=== PATIENT | female | born 1970 | race African-American/Black ===

== ENCOUNTER → 2024-02-06 | Emergency (ER) | payer MEDICAID ==
[~2024-02-06] VITALS: Ht 162.6 cm; Wt 72.6 kg
[~2024-02-06] MED LIST: ALBU18HF2 INH; ALBUTEROL FS 2.5 MG/3 ML VIAL.NEB ONE; ATOR40TA PO; BUDE10.2 INH; BUPR-96 PO; BUSP10TA35 PO; ESCI20TA PO; IPRATROPIUM NEB FS 0.5 MG/2.5 ML AMPUL.NEB ONE; LISI10TA29 PO; METF-881 PO; PANT40TA2 PO; PRED50TA PO; TIOT18CA3 INH; predniSONE 20 MG TABLET ONE
[2024-02-06] MEDS: IPRATROPIUM NEB FS 0.5 MG/2.5 ML AMPUL.NEB NEB ONE (20:15)
[2024-02-06] MEDS: ALBUTEROL FS 2.5 MG/3 ML VIAL.NEB NEB ONE (20:15)
[2024-02-06 20:16] VITALS: O2SAT 100
[2024-02-06] MEDS: predniSONE 20 MG TABLET PO ONE (20:31)
[2024-02-06 21:25] VITALS: O2SAT 100
[2024-02-06 22:53] VITALS: BP 121/81; TEMP 98; O2SAT 100
== END | disposition home or self-care (01) ==
LOC: ER 19:50
DX: J45.901 Unspecified asthma with (acute) exacerbation (principal); I10 Essential (primary) hypertension; E11.9 Type 2 diabetes mellitus without complications; F32.A Depression, unspecified; F41.9 Anxiety disorder, unspecified
CPT/HCPCS: 99285; 71045; 93005; 94644; J7512

== ENCOUNTER 2024-06-07 18:25 | Emergency (ER) | payer MEDICAID ==
[2024-06-07] VITALS (7 sets, daily range): O2SAT 95–100
[~2024-06-07] VITALS: Ht 167.6 cm; Wt 72.6 kg
[~2024-06-07 18:25] MED LIST changes: -ALBUTEROL FS 2.5 MG/3 ML VIAL.NEB ONE; -IPRATROPIUM NEB FS 0.5 MG/2.5 ML AMPUL.NEB ONE; -predniSONE 20 MG TABLET ONE
[2024-06-07] MEDS ORDERED: predniSONE 20 MG TABLET ONE (19:10)
[2024-06-07] MEDS ORDERED: IPRATROPIUM NEB FS 0.5 MG/2.5 ML AMPUL.NEB ONE (19:10)
[2024-06-07] MEDS ORDERED: ALBUTEROL FS 2.5 MG/3 ML VIAL.NEB ONE ×2 (19:10→20:47)
[2024-06-07] MEDS: ALBUTEROL FS 2.5 MG/3 ML VIAL.NEB NEB ONE (19:13)
[2024-06-07] MEDS: IPRATROPIUM NEB FS 0.5 MG/2.5 ML AMPUL.NEB NEB ONE (19:13)
[2024-06-07] MEDS: predniSONE 20 MG TABLET PO ONE (19:14)
[2024-06-07] MEDS: ALBUTEROL FS 2.5 MG/0.5 ML VIAL.NEB NEB ONE ×2 (20:53→21:54)
[2024-06-07] MEDS ORDERED: PRED50TA PO (21:04)
[2024-06-07] MEDS ORDERED: IPRA0.2S49 NEB (21:04)
[2024-06-07] MEDS ORDERED: ALBU2.5V13 NEB (21:04)
[2024-06-07] MEDS ORDERED: ALBUTEROL FS 2.5 MG/0.5 ML VIAL.NEB ONE (21:43)
[2024-06-08 01:55] VITALS: BP 95/67; TEMP 98.7; O2SAT 100
== END 2024-06-08 01:55 | disposition home or self-care (01) ==
LOC: ER 18:32
DX: J45.901 Unspecified asthma with (acute) exacerbation (principal); F17.210 Nicotine dependence, cigarettes, uncomplicated; Z88.5 Allergy status to narcotic agent; Z79.899 Other long term (current) drug therapy
CPT/HCPCS: 99285; 94644; 94645; J7512